=== PATIENT | male | born 1940 | race Caucasian/White ===

== ENCOUNTER 2017-08-24 15:14 | Observation (INO) ==
[2017-08-24] MEDS ORDERED: Ondansetron 4 MG/2 ML VIAL IVP ONE ×2 (15:27→17:52)
[2017-08-24] MEDS ORDERED: 0.9 % Sodium Chloride 1,000 ML IVC ONE (15:27)
[2017-08-24] MEDS ORDERED: diazePAM 10 MG/2 ML SYRINGE IVP STA ×2 (15:30→17:52)
--- NOTE | 2017-08-24 15:30 | Emergency Department Note ---
Disposition Clinical Impression: Vertigo Disposition: Admitted As Inpatient Referrals: Gustavo Fernandez DO [Primary Care Provider] - Forms: ED Satisfaction Letter General Adult HPI - General Chief complaint: ED Nausea/Vomiting/Diarrhea Stated complaint: Nausea Time Seen by Provider: 08/24/17 15:21 - Related Data Allergies Allergy/AdvReac Type Severity Reaction Status Date / Time No Known Allergies Allergy Verified 08/24/17 15:17 Course Vital Signs Temperature 98.1 F 08/24/17 15:17 Pulse Rate 65 08/24/17 15:17 Respiratory Rate 16 08/24/17 15:17 Blood Pressure 146/82 08/24/17 15:17 O2 Sat by Pulse Oximetry 99 08/24/17 15:17 Temperature 98.1 F 08/24/17 15:17 Pulse Rate 62 08/24/17 18:15 Respiratory Rate 16 08/24/17 18:15 Blood Pressure 137/69 08/24/17 18:15 O2 Sat by Pulse Oximetry 96 08/24/17 18:15 Oxygen Delivery Oxygen Delivery Room Air Medical Decision Making - Lab Data Result diagrams: 08/24/17 15:49 08/24/17 15:49 Lab Results 08/24/17 08/24/17 08/24/17 Range/Units 15:49 15:49 15:49 WBC 3.2 L (4.3-11.1) K/mcL RBC 3.83 L (4.19-5.50) M/mcL Hgb 14.5 (12.9-16.9) g/dL Hct 41.3 (37.5-50.1) % MCV 107.8 H (83.0-100.0) fL MCH 37.9 H (28.0-33.3) pg MCHC 35.1 (31.6-35.5) g/dL RDW 13.2 (11.5-14.5) % Plt Count 92 L (140-400) K/mcL MPV 10.9 (9.4-12.4) fL Immature Gran % 0.6 (0-4) % Seg Neutrophils % 65.3 % Lymphocytes % 21.1 % Monocytes % 12.4 % Eosinophils % 0.6 % Basophils % 0.0 % Neutrophils # 2.1 (1.6-8.9) K/mcL Lymphocytes # 0.7 (0.6-4.6) K/mcL Monocytes # 0.4 (0.0-1.3) K/mcL Eosinophils # 0.0 (0.0-0.6) K/mcL Basophils # 0.0 (0.0-0.2) K/mcL Reactive Lymphocytes Present A (Not Present) Platelet Estimate Slight Decrease L (Normal) Immature Plt Fraction 4.2 (1.1-6.1) % Sodium 133 L (136-145) mEq/L Potassium 3.9 (3.5-5.1) mEq/L Chloride 108 H (98-107) mEq/L Carbon Dioxide 23 (23-29) mEq/L BUN 21 (8-23) mg/dL Creatinine 1.39 H (0.70-1.30) mg/dL Est GFR ( Amer) > 60 (> 60) Est GFR (Non-Af Amer) 50 L (> 60) BUN/Creatinine Ratio 15 (6-26) Glucose 134 H (70-105) mg/dL Calculated Osmolality 281 (280-300) Calcium 8.8 (8.6-10.3) mg/dL Troponin I < 0.03 (< 0.04) ng/mL Urine Color (Yellow) Urine Clarity (Clear) Urine pH (5.0-8.0) pH Units Ur Specific [place] (1.010-1.025) Urine Protein (Neg-Trace) mg/dL Urine Glucose (UA) (Normal) mg/dL Urine Ketones (Negative) mg/dL Urine Blood (Negative) Urine Nitrite (Negative) Urine Bilirubin (Negative) Urine Urobilinogen (Normal) mg/dL Ur Leukocyte Esterase (Negative) Urine Microscopic RBC (0-3) per hpf Urine Microscopic WBC (0-3) per hpf Ur Squamous Epith Cells (None-Few) per lpf Urine Bacteria (None-Few) per hpf Hyaline Casts (None-Few) per lpf Ur Culture Indicated? (NO) 08/24/17 Range/Units 17:37 WBC (4.3-11.1) K/mcL RBC (4.19-5.50) M/mcL Hgb (12.9-16.9) g/dL Hct (37.5-50.1) % MCV (83.0-100.0) fL MCH (28.0-33.3) pg MCHC (31.6-35.5) g/dL RDW (11.5-14.5) % Plt Count (140-400) K/mcL MPV (9.4-12.4) fL Immature Gran % (0-4) % Seg Neutrophils % % Lymphocytes % % Monocytes % % Eosinophils % % Basophils % % Neutrophils # (1.6-8.9) K/mcL Lymphocytes # (0.6-4.6) K/mcL Monocytes # (0.0-1.3) K/mcL Eosinophils # (0.0-0.6) K/mcL Basophils # (0.0-0.2) K/mcL Reactive Lymphocytes (Not Present) Platelet Estimate (Normal) Immature Plt Fraction (1.1-6.1) % Sodium (136-145) mEq/L Potassium (3.5-5.1) mEq/L Chloride (98-107) mEq/L Carbon Dioxide (23-29) mEq/L BUN (8-23) mg/dL Creatinine (0.70-1.30) mg/dL Est GFR ( Amer) (> 60) Est GFR (Non-Af Amer) (> 60) BUN/Creatinine Ratio (6-26) Glucose (70-105) mg/dL Calculated Osmolality (280-300) Calcium (8.6-10.3) mg/dL Troponin I (< 0.04) ng/mL Urine Color Yellow (Yellow) Urine Clarity Clear (Clear) Urine pH 6.0 (5.0-8.0) pH Units Ur Specific [place] 1.017 (1.010-1.025) Urine Protein 30 H (Neg-Trace) mg/dL Urine Glucose (UA) Normal (Normal) mg/dL Urine Ketones Negative (Negative) mg/dL Urine Blood Negative (Negative) Urine Nitrite Negative (Negative) Urine Bilirubin Negative (Negative) Urine Urobilinogen Normal (Normal) mg/dL Ur Leukocyte Esterase Negative (Negative) Urine Microscopic RBC 0-3 (0-3) per hpf Urine Microscopic WBC 0-3 (0-3) per hpf Ur Squamous Epith Cells Few (None-Few) per lpf Urine Bacteria None Seen (None-Few) per hpf Hyaline Casts None Seen (None-Few) per lpf Ur Culture Indicated? NO (NO) Attestation Statement - Attestation Attestation: I examined this patient and my medical decision-making was reviewed with the Resident Physician. I agree with the documented findings, disposition and treatment plan as described except to the extent set forth below. Patient presented to the emergency Department chief complaint dizziness. He describes it as a spinning sensation. Feels like things are spinning back and forth. Patient was sleeping and woke up this way. States he noticed it when he opened his eyes. Nauseated. Symptoms resolved when he closes his eyes. On examination he is in no distress. He is laying in bed with his eyes closed. Heart regular lungs clear. He does have a horizontal nystagmus to the left. Plan. Vertigo workup. Workup unremarkable as far. Patient is still vertiginous after multiple meds. Will admit..
--- NOTE | 2017-08-24 15:35 | Emergency Department Note ---
Disposition Clinical Impression: Vertigo Disposition: Admitted As Inpatient Condition: Fair Referrals: Gustavo Fernandez DO [Primary Care Provider] - Forms: ED Satisfaction Letter Time of Disposition: 18:59 General Adult HPI - General Chief complaint: ED Nausea/Vomiting/Diarrhea Stated complaint: Nausea Time Seen by Provider: 08/24/17 15:21 Source: patient, EMS Mode of arrival: EMS Limitations: no limitations Nursing Notes Reviewed: Yes Vital Signs Reviewed: Yes - History of Present Illness HPI Narrative: Patient is a 77-year-old male with a past medical history of ophthalmic migraines presents to the emergency Department by squad for the complaint of room spinning onset approximately 30 minutes prior to arrival. The patient states that he felt fine took a nap and when he woke up from the nap and opened his eyes the room was spinning and he is extremely nauseous. Patient states that since that time is been keeping his eyes closed is improved his symptoms. He states that he has had 2 episodes similar to this in the past month. He was not evaluated. Patient states that he does have a history of but they thought were TIAs which she had about 3, however he is seen by [facility] neurologists and told that there are actually migraines. Those are not similar in presentation to his current symptoms today. He denies any focal neurological deficits Pain Scale: 0 - Related Data Allergies Allergy/AdvReac Type Severity Reaction Status Date / Time No Known Allergies Allergy Verified 08/24/17 15:17 All systems ED: reviewed and negative except as stated. Review of Systems: As Per HPI Constitutional: Denies: fever, chills Cardiovascular: Denies: chest pain, palpitations Respiratory: Denies: cough, dyspnea, wheezes, hemoptysis Gastrointestinal: Denies: abdominal pain, nausea, vomiting Genitourinary: Denies: urgency, dysuria, frequency, hematuria Musculoskeletal: Denies: back pain, neck pain Integumentary: Denies: rash, abrasion, lesions Neurological: Reports: vertigo. Denies: headache, weakness, numbness, paresthesias, confusion, abnormal gait Past Medical History - Past Medical History Attestation: Yes The following information was validated with the patient. Medical history: Reports: cancer, hyperlipidemia, hypertension Psychiatric history: Reports: no psych history - Social History Smoking Status: Never smoker Alcohol use: Reports: none Drug use: Reports: none Physical Exam CONSTITUTIONAL: Alert and oriented X3, well-nourished, well appearing, in no apparent distress. HEAD: Normocephalic; atraumatic. EYES: PERRL, no scleral icterus. NOSE: The nose is normal in appearance without rhinorrhea RESP: Normal chest excursion with respiration; breath sounds clear and equal bilaterally; no wheezes, rhonchi, or rales CARD: Regular rhythm, without murmurs, rub or gallop ABD: Non-distended; non-tender, soft,without rigidity, rebound or guarding SKIN: Normal for age and race; warm and dry; no apparent lesions NEUROLOGICAL: Patient is alert and oriented times three. Horizontal nystagmus to the left. Abnormal head impulse test. No skew deviation. Cranial nerves III- XII are intact. Sensory and motor functions are intact. Strength is 5/5 for flexion and extension in all 4 extremities. Patellar DTRS are equal and intact. Finger to nose testing is equal and normal bilaterally. - General Limitations: no limitations General appearance: alert Course Course Narrative: Patient's exam appreciate horizontal nystagmus to the left. His head impulse test was abnormal. No skew deviation. Patient has no focal neurological deficits. NIHSS 0. Plan at this time is to treat his vertigo with meclizine and valium. He will undergo a workup for dizziness including head CT, cardiac work up and basic labs. - Reevaluation(s) Reevaluation #1: Patient symptoms have improved. He states his spinning has resolved and his nausea is gone. States he still feels unsteady on his feet at this time. Symptoms overall are improving. Time: 16:37 Reevaluation #2: Patient's symptoms continue, he was ambulated to the bathroom without difficulty , however when he was standing up from sitting on the toilet he had room spinning sensation again and had difficulty with ambulation. Once he was back in his cot he was improved. Will repeat valium and zofran and reevaluate. Time: 18:14 Reevaluation #3: Patient symptoms have not completely resolved. Will admit for further evaluation and treatment until stable to ambulate without difficulty. Time: 18:59 Vital Signs Temperature 98.1 F 08/24/17 15:17 Pulse Rate 65 08/24/17 15:17 Respiratory Rate 16 08/24/17 15:17 Blood Pressure 146/82 08/24/17 15:17 O2 Sat by Pulse Oximetry 99 08/24/17 15:17 Temperature 98.1 F 08/24/17 15:17 Pulse Rate 62 08/24/17 18:15 Respiratory Rate 16 08/24/17 18:15 Blood Pressure 137/69 08/24/17 18:15 O2 Sat by Pulse Oximetry 96 08/24/17 18:15 Oxygen Delivery Oxygen Delivery Room Air Medical Decision Making - Medical Records Medical records reviewed: Yes I reviewed the patient's medical records. - Lab Data Lab results reviewed: Yes I reviewed the patient's lab results. Result diagrams: 08/24/17 15:49 08/24/17 15:49 Lab Results 08/24/17 08/24/17 08/24/17 Range/Units 15:49 15:49 15:49 WBC 3.2 L (4.3-11.1) K/mcL RBC 3.83 L (4.19-5.50) M/mcL Hgb 14.5 (12.9-16.9) g/dL Hct 41.3 (37.5-50.1) % MCV 107.8 H (83.0-100.0) fL MCH 37.9 H (28.0-33.3) pg MCHC 35.1 (31.6-35.5) g/dL RDW 13.2 (11.5-14.5) % Plt Count 92 L (140-400) K/mcL MPV 10.9 (9.4-12.4) fL Immature Gran % 0.6 (0-4) % Seg Neutrophils % 65.3 % Lymphocytes % 21.1 % Monocytes % 12.4 % Eosinophils % 0.6 % Basophils % 0.0 % Neutrophils # 2.1 (1.6-8.9) K/mcL Lymphocytes # 0.7 (0.6-4.6) K/mcL Monocytes # 0.4 (0.0-1.3) K/mcL Eosinophils # 0.0 (0.0-0.6) K/mcL Basophils # 0.0 (0.0-0.2) K/mcL Reactive Lymphocytes Present A (Not Present) Platelet Estimate Slight Decrease L (Normal) Immature Plt Fraction 4.2 (1.1-6.1) % Sodium 133 L (136-145) mEq/L Potassium 3.9 (3.5-5.1) mEq/L Chloride 108 H (98-107) mEq/L Carbon Dioxide 23 (23-29) mEq/L BUN 21 (8-23) mg/dL Creatinine 1.39 H (0.70-1.30) mg/dL Est GFR ( Amer) > 60 (> 60) Est GFR (Non-Af Amer) 50 L (> 60) BUN/Creatinine Ratio 15 (6-26) Glucose 134 H (70-105) mg/dL Calculated Osmolality 281 (280-300) Calcium 8.8 (8.6-10.3) mg/dL Troponin I < 0.03 (< 0.04) ng/mL Urine Color (Yellow) Urine Clarity (Clear) Urine pH (5.0-8.0) pH Units Ur Specific [place] (1.010-1.025) Urine Protein (Neg-Trace) mg/dL Urine Glucose (UA) (Normal) mg/dL Urine Ketones (Negative) mg/dL Urine Blood (Negative) Urine Nitrite (Negative) Urine Bilirubin (Negative) Urine Urobilinogen (Normal) mg/dL Ur Leukocyte Esterase (Negative) Urine Microscopic RBC (0-3) per hpf Urine Microscopic WBC (0-3) per hpf Ur Squamous Epith Cells (None-Few) per lpf Urine Bacteria (None-Few) per hpf Hyaline Casts (None-Few) per lpf Ur Culture Indicated? (NO) 08/24/17 Range/Units 17:37 WBC (4.3-11.1) K/mcL RBC (4.19-5.50) M/mcL Hgb (12.9-16.9) g/dL Hct (37.5-50.1) % MCV (83.0-100.0) fL MCH (28.0-33.3) pg MCHC (31.6-35.5) g/dL RDW (11.5-14.5) % Plt Count (140-400) K/mcL MPV (9.4-12.4) fL Immature Gran % (0-4) % Seg Neutrophils % % Lymphocytes % % Monocytes % % Eosinophils % % Basophils % % Neutrophils # (1.6-8.9) K/mcL Lymphocytes # (0.6-4.6) K/mcL Monocytes # (0.0-1.3) K/mcL Eosinophils # (0.0-0.6) K/mcL Basophils # (0.0-0.2) K/mcL Reactive Lymphocytes (Not Present) Platelet Estimate (Normal) Immature Plt Fraction (1.1-6.1) % Sodium (136-145) mEq/L Potassium (3.5-5.1) mEq/L Chloride (98-107) mEq/L Carbon Dioxide (23-29) mEq/L BUN (8-23) mg/dL Creatinine (0.70-1.30) mg/dL Est GFR ( Amer) (> 60) Est GFR (Non-Af Amer) (> 60) BUN/Creatinine Ratio (6-26) Glucose (70-105) mg/dL Calculated Osmolality (280-300) Calcium (8.6-10.3) mg/dL Troponin I (< 0.04) ng/mL Urine Color Yellow (Yellow) Urine Clarity Clear (Clear) Urine pH 6.0 (5.0-8.0) pH Units Ur Specific [place] 1.017 (1.010-1.025) Urine Protein 30 H (Neg-Trace) mg/dL Urine Glucose (UA) Normal (Normal) mg/dL Urine Ketones Negative (Negative) mg/dL Urine Blood Negative (Negative) Urine Nitrite Negative (Negative) Urine Bilirubin Negative (Negative) Urine Urobilinogen Normal (Normal) mg/dL Ur Leukocyte Esterase Negative (Negative) Urine Microscopic RBC 0-3 (0-3) per hpf Urine Microscopic WBC 0-3 (0-3) per hpf Ur Squamous Epith Cells Few (None-Few) per lpf Urine Bacteria None Seen (None-Few) per hpf Hyaline Casts None Seen (None-Few) per lpf Ur Culture Indicated? NO (NO) - Radiology Data Radiology results reviewed: Yes I reviewed the patient's radiology results. Chest X-Ray 08/24/17 15:28 IMPRESSION: No change from prior study. No acute consolidation. D/ / 08/24/2017 15:51:29 Gopi Morin MD / keenan Interpreting Provider: Gopi Morin MD Head CT 08/24/17 15:58 IMPRESSION: No acute intracranial abnormality. Diffuse atrophic changes with findings suggesting chronic microvascular ischemia D/ / Farhan Hernandez MD / Farhan Hernandez MD Interpreting Provider: Farhan Hernandez MD - EKG Data EKG #1 EKG attestation: Yes I reviewed and interpreted this EKG. EKG results narrative: EKG done at 15:22 shows sinus rhythm at a rate of 65 bpm. Normal axis. Intervals within normal limits no signs of ST elevation, ST depression or Q waves present.
[2017-08-24 16:13] LABS: Hemoglobin 14.5 g/dL (12.9-16.9); Immature Granulocytes % 0.6 % (0-4); Red Cell Distribution Width 13.2 % (11.5-14.5)
[2017-08-24 16:15] LABS: Eosinophils % 0.6 %; Hematocrit 41.3 % (37.5-50.1); Immature Platelets 4.2 % (1.1-6.1); Lymphocytes # 0.7 K/mcL (0.6-4.6); Lymphocytes % 21.1 %; Mean Corpuscular HGB Conc 35.1 g/dL (31.6-35.5); Mean Corpuscular Hemoglobin 37.9 pg (28.0-33.3); Mean Corpuscular Volume 107.8 fL (83.0-100.0); Mean Platelet Volume 10.9 fL (9.4-12.4); Monocytes # 0.4 K/mcL (0.0-1.3); Monocytes % 12.4 %; Neutrophils # 2.1 K/mcL (1.6-8.9); Red Blood Count 3.83 M/mcL (4.19-5.50); Segmented Neutrophils % 65.3 %
[2017-08-24 16:27] LABS: Blood Urea Nitrogen 21 mg/dL (8-23); Calcium 8.8 mg/dL (8.6-10.3); Carbon Dioxide 23 mEq/L (23-29); Chloride 108 mEq/L (98-107); Glucose 134 mg/dL (70-105); Osmolality,Calculated 281 (280-300); Potassium 3.9 mEq/L (3.5-5.1); Sodium 133 mEq/L (136-145)
[2017-08-24 16:37] LABS: Platelet Count 92 K/mcL (140-400)
[2017-08-24 16:39] LABS: Platelet Estimate Slight Decrease (Normal); Reactive Lymphocytes Present (Not Present)
[2017-08-24 16:47] LABS: BUN/Creatinine Ratio 15 (6-26); eGFR For African Americans > 60 (> 60); eGFR For Non-African Americans 50 (> 60)
[2017-08-24 18:05] LABS: Bilirubin,Urine Negative (Negative); Blood,Urine Negative (Negative); Clarity,Urine Clear (Clear); Color,Urine Yellow (Yellow); Glucose,Urine (UA) Normal (Normal); Ketones,Urine Negative (Negative); Leukocyte Esterase,Urine Negative (Negative); Nitrite,Urine Negative (Negative); Protein,Urine 30 mg/dL (Neg-Trace); Specific Gravity,Urine 1.017 (1.010-1.025); Urobilinogen,Urine Normal (Normal)
[2017-08-24 18:08] LABS: Bacteria,Urine None Seen per hpf (None-Few); Hyaline Casts,Urine None Seen per lpf (None-Few); RBC,Urine 0-3 per hpf (0-3); Squamous Epithelial Cell,Urine Few per lpf (None-Few); WBC,Urine 0-3 per hpf (0-3)
--- NOTE | 2017-08-24 20:07 | Internal Med History&Physical ---
Date of Encounter: 08/24/17 Time of Encounter: 20:06 Internal Medicine - H&P: HPI History of present illness: Mr. Zhang is a 77 year old male Past Med Surg Social Fam HX - Past Medical History Medical history: cancer (Leukemia, Basal cell carcinoma, Malignant melanoma stage 3), hyperlipidemia, migraine (opthalmic), renal disease (CKD stage 3), other (MDS, diverticulosis) Psychiatric history: no psych history - Past Surgical History Additional surgical history: Heel sx, Carpal tunnel sx, partial colon resection due to diverticulosis - Social History Smoking Status: Never smoker Alcohol use: none Drug use: none Occupational status: other ([employer]) Current living situation: Home, With Family (3 grandsons) Activity Level: Independent ambulation Recent Out of Country Travel Within the Last 8 Weeks: No Exposure or Possible Exposure to Illness During Travel: No - Family History Mother Hx Family Cancer: Yes (MDS) Father Living Status: Cause of : Ruptured appendicitis Internal Medicine - H&P: Meds Aspirin [Lo-Dose Aspirin EC] 81 mg PO DAILY 08/24/17 [History] Cinnamon Bark [Cinnamon] 500 mg PO DAILY 08/24/17 [History] Cyanocobalamin (B-12) [Vitamin B12] 1,000 mcg PO DAILY 08/24/17 [History] Escitalopram [Lexapro] 10 mg PO DAILY 08/24/17 [History] Famotidine [Acid Plan Checker] 10 mg PO DAILY 08/24/17 [History] Lisinopril 2.5 mg PO DAILY 08/24/17 [History] Metoprolol Succinate [Toprol Xl] 12.5 mg PO DAILY 08/24/17 [History] Multivit-Min/FA/Lycopen/Lutein [A Thru Z Select Multivit Tab] 1 tab PO DAILY [History] Nortriptyline [Pamelor] 25 mg PO HS 08/24/17 [History] Sikes-3/Dha/Epa/Fish Oil [Fish Oil 1,000 mg Softgel] 1 cap PO DAILY 08/24/17 [ History] Simvastatin [Zocor] 40 mg PO HS 08/24/17 [History] Testosterone Cypionate [Depo-Testosterone] 200 mg IM Q17D 08/24/17 [History] 3 Allergy/AdvReac Type Severity Reaction Status Date / Time No Known Allergies Allergy Verified 08/24/17 15:17 All Systems PM: A 10-system review of systems was performed and is negative for pertinent findings except as documented above in the HPI. - Constitutional Constitutional: chills, malaise, weakness, no fever(s), no falls, no weight gain , no weight loss - EENT Eyes: blurry vision, change in vision, other visual disturbances, no diplopia, no floaters, no loss of peripheral vision, no loss of vision, no seeing flashes , no spots in vision, no tunnel vision Nose, mouth and throat: no sinus pain, no sore throat - Cardiovascular Cardiovascular ROS IM: no chest pain, no dyspnea, no palpitations - Respiratory Respiratory: no cough, no dyspnea on exertion, no chest congestion - Gastrointestinal Gastrointestinal: diarrhea, loose stools (chronic s/p bowle resection), nausea, no abdominal pain, no constipation, no heartburn, no vomiting - Genitourinary Genitourinary ROS male: difficulty urinating, urinary hesitancy, urinary urgency , no dysuria, no flank pain, no urinary frequency, no urinary incontinence - Musculoskeletal Musculoskeletal ROS IM: no arthralgias, no back pain, no joint swelling, no limited range of motion, no numbness, no tingling - Integumentary Integumentary IM: no erythema, no non-healing lesions, no rash, no skin ulcer - Neurological Neurological ROS: abnormal gait, disequilibrium, dizziness, headache(s), lack of coordination, tremor(s), vertigo, weakness, other visual disturbances, no abnormal speech, no behavioral changes, no confusion, no convulsions, no focal weakness, no frequent falls, no loss of vision, no numbness, no paresthesias, no radicular pain, no restless legs, no tingling - Psychiatric Psychiatric: no anxiety, no confusion, no depression - Endocrine Endocrine IM: fatigue, no polydipsia, no polyphagia, no polyuria - Hematologic/Lymphatic Hematologic/Lymphatic: no easy bleeding, no easy bruising - Constitutional Vitals: Temp Pulse Resp BP Pulse Ox 98.1 F 62 16 137/69 96 08/24/17 15:17 08/24/17 18:15 08/24/17 18:15 08/24/17 18:15 08/24/17 18:15 General appearance: Present: cooperative, A&O X 3, pleasant, obese, answers questions appropriately - Head Head exam: Present: atraumatic, normocephalic - Eye Eye exam: Present: PERRL, conjuntiva pink, sclera anicteric Pupils: Present: PERRL - ENT ENT exam: Present: mucous membranes dry, normal oropharynx - Neck Neck exam general surgery: Present: supple, trachea midline. Absent: lymphadenopathy - Respiratory Respiratory exam: Present: CTAB. Absent: accessory muscle use, rales, rhonchi, wheezes - Cardiovascular Cardiovascular exam: Present: RRR, +S1, +S2. Absent: diastolic murmur, gallop, rubs, systolic murmur - GI/Abdominal GI/Abdominal exam: Present: normal bowel sounds, soft, no peritoneal signs. Absent: distended, tenderness - Extremities Exam Extremities exam: Present: normal inspection, warm, radial pulses palpable and symmetrical. Absent: calf tenderness, cyanotic, pedal edema - Back Exam Back exam: Absent: CVA tenderness (L), CVA tenderness (R), normal inspection ( large skin graft and postsurgical changes lower T-spine) - Neurological Exam Neurological exam: Present: abnormal gait, alert, CN II-XII intact, motor sensory deficit, oriented X3, no focal deficits, strengths equal and symetr throughout. Absent: altered, pronater drift, facial droop, speech deficit - Expanded Neurological Exam Neurological exam expanded: Present: tremor (mild) Patient oriented to: Present: person, place, time Speech: Present: fluid speech Cranial Nerves: EOM's intact PM: Normal, tongue deviation PM: Normal Cerebellar function: finger to nose: Normal, heel to wang: Normal, Romberg: Normal Sensory exam: lower extremity light touch: Normal, upper extremity light touch: Normal Neuro motor strength exam: LUE: 5, RUE: 5, LLE: 5, RLE: 5 Coma Scale Eye Opening: Spontaneous Coma Scale Motor Response: Obeys Commands Coma Scale Verbal Response: Oriented Coma Scale Total: 15 - Psychiatric Psychiatric exam: Present: normal affect, normal mood - Skin Skin exam: Present: dry, intact, normal color, warm Internal Med - H&P Results - Labs CBC & Chem 7: 08/24/17 15:49 08/24/17 15:49 - Pulse Oximetry Interpretation Digit-Finger O2 Sat by Pulse Oximetry: 95 (On RA) - Impressions ITS Impressions Chest X-Ray 08/24/17 15:28 IMPRESSION: No change from prior study. No acute consolidation. D/ / 08/24/2017 15:51:29 Gopi Morin MD / keenan Interpreting Provider: Gopi Morin MD Head CT 08/24/17 15:58 IMPRESSION: No acute intracranial abnormality. 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
[2017-08-24] MEDS ORDERED: Ondansetron 4 MG/2 ML VIAL IVP PRN (21:55)
[2017-08-24] MEDS ORDERED: Naloxone 0.4 MG/ML INJ IVP PRN (21:55)
[2017-08-24] MEDS ORDERED: Acetaminophen 325 MG TABLET PO PRN (21:55)
[2017-08-24] MEDS ORDERED: 0.9 % Sodium Chloride 1,000 ML IVC SCH (22:00)
[2017-08-24] MEDS ORDERED: Ondansetron 4 MG/2 ML VIAL ONE (23:13)
--- NOTE | 2017-08-24 23:52 | Internal Med History&Physical ---
<Getachew Hutchins - Last Filed: 08/25/17 20:03> Date of Encounter: 08/25/17 Time of Encounter: 20:06 Internal Medicine - H&P: HPI Chief complaint: Dizziness Admitted From: Home History of present illness: Mr. Zhang is a 77 year old male with a PMH of Leukemia, MDS, CKD stage 3, ophthalmic migraines, brain aneurysm since , and HLD who presents c/o dizziness. Patient reports double vision and room spinning sensation, worse with position changes and turning his head. Patient reports visiting his PCP about 6 weeks ago when symptoms initially occurred. Symptoms resolved spontaneously at that time but returned this morning after the patient took a nap around noon. He reports getting up and feeling like the room was spinning and he was seeing doubles. Patient called his grandson who took him to the ER. He is very unsteady on his feet and feels like he will fall. He reports associated chills, nausea, loose bowel movements, urinary hesitancy, tremors, and occipital headache. Patient denies fever, CP, SOB, abd pain, vomiting, numbness, tingling, extremity weakness, slurred speech, recent travel, recent illness, or sick contacts. CT brain was negative for acute abnormality. Patient reports improvement in symptoms after Meclizine and Valium in the ED. Past Med Surg Social Fam HX - Past Medical History Medical history: cancer (Leukemia, Basal cell carcinoma, Malignant melanoma stage 3), hyperlipidemia, migraine (ophthalmic), renal disease (CKD stage 3), other (MDS, diverticulosis, JOSE) Additional medical history: brain aneurysm Psychiatric history: no psych history - Past Surgical History Surgical History: tonsilectomy Additional surgical history: Heel sx, Carpal tunnel sx, partial colon resection due to diverticulosis - Social History Smoking Status: Never smoker Alcohol use: occasionally ([place] every 6 weeks) Drug use: none Occupational status: other ([employer]) Current living situation: Home, With Family Activity Level: Independent ambulation Recent Out of Country Travel Within the Last 8 Weeks: No Exposure or Possible Exposure to Illness During Travel: No - Family History Mother Hx Family Cancer: Yes (MDS) Father Living Status: Cause of : Ruptured appendicitis Internal Medicine - H&P: Meds Aspirin [Lo-Dose Aspirin EC] 81 mg PO DAILY 08/24/17 [History] Cinnamon Bark [Cinnamon] 500 mg PO DAILY 08/24/17 [History] Cyanocobalamin (B-12) [Vitamin B12] 1,000 mcg PO DAILY 08/24/17 [History] Escitalopram [Lexapro] 10 mg PO DAILY 08/24/17 [History] Famotidine [Acid Patent Prosecution Paralegal] 10 mg PO DAILY 08/24/17 [History] Lisinopril 2.5 mg PO DAILY 08/24/17 [History] Metoprolol Succinate [Toprol Xl] 12.5 mg PO DAILY 08/24/17 [History] Multivit-Min/FA/Lycopen/Lutein [A Thru Z Select Multivit Tab] 1 tab PO DAILY [History] Nortriptyline [Pamelor] 25 mg PO HS 08/24/17 [History] [place]-3/Dha/Epa/Fish Oil [Fish Oil 1,000 mg Softgel] 1 cap PO DAILY 08/24/17 [ History] Simvastatin [Zocor] 40 mg PO HS 08/24/17 [History] Testosterone Cypionate [Depo-Testosterone] 200 mg IM Q17D 08/24/17 [History] 3 Allergy/AdvReac Type Severity Reaction Status Date / Time No Known Allergies Allergy Verified 08/24/17 15:17 All Systems PM: A 10-system review of systems was performed and is negative for pertinent findings except as documented above in the HPI. - Constitutional Constitutional: chills, malaise, weakness, no fever(s), no falls, no weight gain , no weight loss - EENT Eyes: blurry vision, change in vision, other visual disturbances, no diplopia, no floaters, no loss of peripheral vision, no loss of vision, no seeing flashes , no spots in vision, no tunnel vision Nose, mouth and throat: no sinus pain, no sore throat - Cardiovascular Cardiovascular ROS IM: no chest pain, no dyspnea, no palpitations - Respiratory Respiratory: no cough, no dyspnea on exertion, no chest congestion - Gastrointestinal Gastrointestinal: diarrhea, loose stools (chronic s/p bowle resection), nausea, no abdominal pain, no constipation, no heartburn, no vomiting - Genitourinary Genitourinary ROS male: difficulty urinating, urinary hesitancy, urinary urgency , no dysuria, no flank pain, no urinary frequency, no urinary incontinence - Musculoskeletal Musculoskeletal ROS IM: no arthralgias, no back pain, no joint swelling, no limited range of motion, no numbness, no tingling - Integumentary Integumentary IM: no erythema, no non-healing lesions, no rash, no skin ulcer - Neurological Neurological ROS: abnormal gait, disequilibrium, dizziness, headache(s), lack of coordination, tremor(s), vertigo, weakness, other visual disturbances, no abnormal speech, no behavioral changes, no confusion, no convulsions, no focal weakness, no frequent falls, no loss of vision, no numbness, no paresthesias, no radicular pain, no restless legs, no tingling - Psychiatric Psychiatric: no anxiety, no confusion, no depression - Endocrine Endocrine IM: fatigue, no polydipsia, no polyphagia, no polyuria - Hematologic/Lymphatic Hematologic/Lymphatic: no easy bleeding, no easy bruising - Constitutional Vitals: Temp Pulse Resp BP Pulse Ox 98.0 F 62 16 122/53 95 08/24/17 21:25 08/24/17 21:25 08/24/17 21:25 08/24/17 21:25 08/24/17 21:25 General appearance: Present: cooperative, A&O X 3, pleasant, obese, answers questions appropriately Exam: - Head Head exam: Present: atraumatic, normocephalic - Eye Eye exam: Present: nystagmus, PERRL, conjuntiva pink, sclera anicteric Pupils: Present: PERRL - ENT ENT exam: Present: mucous membranes dry, normal oropharynx - Neck Neck exam general surgery: Present: supple, trachea midline. Absent: lymphadenopathy - Respiratory Respiratory exam: Present: CTAB. Absent: accessory muscle use, rales, rhonchi, wheezes - Cardiovascular Cardiovascular exam: Present: RRR, +S1, +S2. Absent: diastolic murmur, gallop, rubs, systolic murmur - GI/Abdominal GI/Abdominal exam: Present: normal bowel sounds, soft, no peritoneal signs. Absent: distended, tenderness - Extremities Exam Extremities exam: Present: normal inspection, warm, radial pulses palpable and symmetrical. Absent: calf tenderness, cyanotic, pedal edema - Back Exam Back exam: Absent: CVA tenderness (L), CVA tenderness (R), normal inspection ( large skin graft and postsurgical changes lower T-spine) - Neurological Exam Neurological exam: Present: abnormal gait, alert, CN II-XII intact, motor sensory deficit, oriented X3, no focal deficits, strengths equal and symetr throughout. Absent: altered, pronater drift, facial droop, speech deficit - Expanded Neurological Exam Neurological exam expanded: Present: tremor (mild) Patient oriented to: Present: person, place, time Speech: Present: fluid speech Cranial Nerves: nystagmus, EOM's intact PM: Normal, tongue deviation PM: Normal Cerebellar function: finger to nose: Normal, heel to wang: Normal, Romberg: Normal Sensory exam: lower extremity light touch: Normal, upper extremity light touch: Normal Neuro motor strength exam: LUE: 5, RUE: 5, LLE: 5, RLE: 5 Coma Scale Eye Opening: Spontaneous Coma Scale Motor Response: Obeys Commands Coma Scale Verbal Response: Oriented Coma Scale Total: 15 - Psychiatric Psychiatric exam: Present: normal affect, normal mood - Skin Skin exam: Present: dry, intact, normal color, warm Internal Med - H&P Results - Labs CBC & Chem 7: 08/25/17 05:52 08/25/17 05:52 - Pulse Oximetry Interpretation Digit-Finger O2 Sat by Pulse Oximetry: 95 (On room air) - Impressions ITS Impressions Chest X-Ray 08/24/17 15:28 IMPRESSION: No change from prior study. No acute consolidation. D/ / 08/24/2017 15:51:29 Gopi Morin MD / [facility] Interpreting Provider: Gopi Morin MD Head CT 08/24/17 15:58 IMPRESSION: No acute intracranial abnormality. Diffuse atrophic changes with findings suggesting chronic microvascular ischemia D/ / Farhan Hernandez MD / Farhan Hernandez MD Interpreting Provider: aFrhan Hernandez MD - Assessment and plan (1) Vertigo Current Visit: Yes Status: Acute Assessment and plan: Patient with diplopia and room spinning sensation, worse with position changes and turning his head. Patient evaluated by PCP 6 weeks ago when symptoms started. The symptoms resolved spontaneously at that time and returned on the morning of admission after he took a nap. Patient reports relief with Meclizine and Zofran We will continue IV fluids, Meclizine, antiemetics Continue telemetry PT/OT consulted Plan for vestibular rehabilitation after discharge. 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 and plan: In remission Patient denies current therapy Outpatient monitoring Qualifiers: Leukemia type: unspecified Leukemia Active/Remission status: in remission Qualified Code(s): C95.91 - Leukemia, unspecified, in remission (5) History of malignant melanoma Current Visit: Yes Status: Chronic Assessment and plan: Remote stage 3 lower back malignant melanoma requiring extensive surgery and skin grafting (6) CKD (chronic kidney disease), stage III Current Visit: Yes Status: Chronic Assessment and plan: Continue gentle hydration Avoid nephrotoxins Continue monitoring (7) HLD (hyperlipidemia) Current Visit: Yes Status: Chronic Assessment and plan: Continue home meds Qualifiers: Hyperlipidemia type: unspecified Qualified Code(s): E78.5 - Hyperlipidemia , unspecified (8) JOSE (obstructive sleep apnea) Current Visit: Yes Status: Chronic Assessment and plan: Continue CPAP at night (9) DVT prophylaxis Current Visit: Yes Status: Acute Assessment and plan: Heparin subQ (10) Obesity (BMI 30.0-34.9) Current Visit: Yes Status: Chronic Assessment and plan: Lifestyle modification - Time Spent With Patient Total time spent is greater than 50% in coordination of care (as documented) at patient's floor/unit and/or counseling patient: <HuberAsmitayara - Last Filed: 08/26/17 01:20> Date of Encounter: 08/26/17 Internal Medicine - H&P: HPI History of present illness: Mr. Zhang is a 77 year old male All Systems PM: A 10-system review of systems was performed and is negative for pertinent findings except as documented above in the HPI. - Constitutional Vitals: Temp Pulse Resp BP Pulse Ox 98.6 F 61 16 125/66 96 08/25/17 19:15 08/25/17 19:15 08/25/17 19:15 08/25/17 19:15 08/25/17 19:15 Internal Med - H&P Results - Labs CBC & Chem 7: 08/25/17 05:52 08/25/17 05:52 Labs: Short CBC 08/25/17 Range/Units 05:52 WBC 3.4 L (4.3-11.1) K/mcL Hgb 14.2 (12.9-16.9) g/dL Hct 40.5 (37.5-50.1) % Plt Count 96 L (140-400) K/mcL Neutrophils # 2.2 (1.6-8.9) K/mcL BMP 08/25/17 05:52 Sodium 136 Potassium 4.3 Chloride 105 Carbon Dioxide 25 BUN 17 Creatinine 1.21 Glucose 113 H Calcium 8.7 - Attending Attestation I have seen and examined this patient independently. I have discussed with resident physician Dr Hutchins regarding the management plan. Agree with the documentation. - Assessment and plan (1) Vertigo Current Visit: Yes Status: Acute (2) MDS (myelodysplastic syndrome) Current Visit: Yes Status: Chronic (3) Leukemia Current Visit: Yes Status: Chronic Qualifiers: Leukemia type: unspecified Leukemia Active/Remission status: in remission Qualified Code(s): C95.91 - Leukemia, unspecified, in remission (4) History of malignant melanoma Current Visit: Yes Status: Chronic (5) CKD (chronic kidney disease), stage III Current Visit: Yes Status: Chronic (6) HLD (hyperlipidemia) Current Visit: Yes Status: Chronic Qualifiers: Hyperlipidemia type: unspecified Qualified Code(s): E78.5 - Hyperlipidemia , unspecified (7) DVT prophylaxis Current Visit: Yes Status: Acute (8) Ophthalmic migraine Current Visit: Yes Status: Chronic (9) JOSE (obstructive sleep apnea) Current Visit: Yes Status: Chronic (10) Obesity (BMI 30.0-34.9) Current Visit: Yes Status: Chronic - Time Spent With Patient Total time spent is greater than 50% in coordination of care (as documented) at patient's floor/unit and/or counseling patient:
[2017-08-25] MEDS ORDERED: Acetaminophen 325 MG TABLET PO ONE (00:21)
[2017-08-25 09:18] LABS: Basophils % 0.3 %; Eosinophils % 0.3 %; Hematocrit 40.5 % (37.5-50.1); Hemoglobin 14.2 g/dL (12.9-16.9); Immature Granulocytes % 0.6 % (0-4); Immature Platelets 5.2 % (1.1-6.1); Lymphocytes # 0.7 K/mcL (0.6-4.6); Lymphocytes % 21.2 %; Mean Corpuscular HGB Conc 35.1 g/dL (31.6-35.5); Mean Corpuscular Hemoglobin 38.6 pg (28.0-33.3); Mean Corpuscular Volume 110.1 fL (83.0-100.0); Mean Platelet Volume 11.2 fL (9.4-12.4); Monocytes # 0.4 K/mcL (0.0-1.3); Monocytes % 12.4 %; Neutrophils # 2.2 K/mcL (1.6-8.9); Red Blood Count 3.68 M/mcL (4.19-5.50); Red Cell Distribution Width 13.3 % (11.5-14.5); Segmented Neutrophils % 65.2 %
[2017-08-25] MEDS: Cyanocobalamin (B-12) 1,000 MCG TABLET PO SCH (09:26)
[2017-08-25] MEDS: Famotidine 20 MG TABLET PO SCH (09:26)
[2017-08-25] MEDS: Multivit/Ca/Min/Fe/FA 1 TAB TABLET PO SCH (09:27)
[2017-08-25] MEDS: Metoprolol XL (24 HR) Succ 25 MG TAB.ER.24H PO SCH (09:28)
[2017-08-25] MEDS: Aspirin Enteric Coated 81 MG Tablet PO SCH (09:29)
[2017-08-25 09:32] LABS: BUN/Creatinine Ratio 14 (6-26); Blood Urea Nitrogen 17 mg/dL (8-23); Calcium 8.7 mg/dL (8.6-10.3); Carbon Dioxide 25 mEq/L (23-29); Chloride 105 mEq/L (98-107); Glucose 113 mg/dL (70-105); Osmolality,Calculated 284 (280-300); Potassium 4.3 mEq/L (3.5-5.1); Sodium 136 mEq/L (136-145); eGFR For African Americans > 60 (> 60); eGFR For Non-African Americans 58 (> 60)
--- NOTE | 2017-08-25 11:24 | Internal Med Progress Note ---
Date of Encounter: 08/25/17 Time of Encounter: 10:45 - Assessment and plan (1) Vertigo Current Visit: Yes Status: Acute Assessment and plan: Patient reports dizziness, diplopia and room spinning sensation, worse with position changes and turning his head. Patient reports that he has been evaluated by his primary care about 6 weeks ago when symptoms started. The symptoms resolved spontaneously at that time and returned on the morning of admission after he took a nap. Patient states that he got up and felt like the room was spinning. Today he reports horizontal jerking when he is watching TV. He denies any other vision changes, headache or nausea or vomiting. Patient reports some relief of symptoms with meclizine and states he is starting to feel some better. Patient echocardiogram in April, that showed an EF of 60% with mild LV DD, mild AR, mild AF, mild TR. We will continue IV fluids, meclizine, rest. Continue telemetry Plan for vestibular rehabilitation after discharge. (2) MDS (myelodysplastic syndrome) Current Visit: Yes Status: Chronic Assessment and plan: Patient with leukopenia and thrombocytopenia secondary to MDS Follow outpatient as scheduled. (3) Leukemia Current Visit: Yes Status: Chronic Assessment and plan: In remission Patient denies current therapy Follow with primary care as scheduled. Qualifiers: Leukemia type: unspecified Leukemia Active/Remission status: in remission Qualified Code(s): C95.91 - Leukemia, unspecified, in remission (4) History of malignant melanoma Current Visit: Yes Status: Chronic Assessment and plan: Remote history of stage 3 lower back malignant melanoma requiring extensive surgery and skin grafting (5) CKD (chronic kidney disease), stage III Current Visit: Yes Status: Chronic Assessment and plan: Continue gentle IVF hydration Avoid nephrotoxins Continue monitoring Serum creatinine 1.21, GFR 58. (6) HLD (hyperlipidemia) Current Visit: Yes Status: Chronic Assessment and plan: Chronic. Continue home dose of Zocor. Qualifiers: Hyperlipidemia type: unspecified Qualified Code(s): E78.5 - Hyperlipidemia , unspecified (7) DVT prophylaxis Current Visit: Yes Status: Acute Assessment and plan: Heparin SQ BID Encourage ambulation when patient is able. (8) Ophthalmic migraine Current Visit: Yes Status: Chronic Assessment and plan: Patient has not seen an neurologist in several years Continue home meds Follow-up with primary care. (9) JOSE (obstructive sleep apnea) Current Visit: Yes Status: Chronic Assessment and plan: Continue CPAP at night (10) Obesity (BMI 30.0-34.9) Current Visit: Yes Status: Chronic Assessment and plan: Chronic. Encourage lifestyle modifications. - Time Spent With Patient Total time spent is greater than 50% in coordination of care (as documented) at patient's floor/unit and/or counseling patient: less than 15 minutes - Subjective Interval history: Patient was seen and assessed at 10 10:45 AM. Patient is alert, awake, resting quietly in a dark room with his eyes closed. He does report some improvement with meclizine and fluids. He states he is still somewhat dizzy, but better. He denies chest pain, shortness of breath, nausea or vomiting, abdominal pain. Denies peripheral edema or vision changes. We will continue to monitor patient and look at discharge tomorrow. - Constitutional Vitals: Temp Pulse Resp BP Pulse Ox 98.3 F 67 16 145/70 97 08/24/17 23:43 08/24/17 23:43 08/24/17 23:43 08/24/17 23:43 08/24/17 23:43 General appearance: Present: cooperative, A&O X 3, pleasant, no acute distress, obese, answers questions appropriately - Head Head exam: Present: atraumatic, normocephalic - Eye Eye exam: Present: EOMI, normal appearance, conjuntiva pink, sclera anicteric. Absent: nystagmus Pupils: Absent: fixed - Neck Neck exam general surgery: Present: normal inspection, supple, trachea midline. Absent: lymphadenopathy, tenderness, thyromegaly - Respiratory Respiratory exam: Present: CTAB. Absent: accessory muscle use, chest wall tenderness, rales, respiratory distress, rhonchi, wheezes - Cardiovascular Cardiovascular exam: Present: RRR, +S1, +S2. Absent: diastolic murmur, gallop, rubs, systolic murmur - GI/Abdominal GI/Abdominal exam: Present: normal bowel sounds, soft. Absent: distended, hepatomegaly, tenderness - Extremities Exam Extremities exam: Present: normal capillary refill, normal inspection, warm, radial pulses palpable and symmetrical. Absent: calf tenderness, cyanotic, pedal edema, tenderness - Neurological Exam Neurological exam: Present: alert, oriented X3, no focal deficits. Absent: facial droop, speech deficit - Skin Skin exam: Present: dry, intact, normal color, warm. Absent: rash Internal Medicine: Result - Labs CBC & Chem 7: 08/24/17 15:49 08/24/17 15:49 Consult Discharge Plan - Plan Referrals: Gustavo Fernandez DO [Primary Care Provider] -
[2017-08-25 11:55] LABS: Platelet Count 96 K/mcL (140-400)
[2017-08-25 12:00] LABS: Platelet Estimate Decreased (Normal)
[2017-08-25] MEDS ORDERED: 0.9 % Sodium Chloride 1,000 ML IVC SCH (12:15)
[2017-08-25] MEDS: *HR* Heparin 5,000 UNIT/ML VIAL SQ SCH ×2 (17:17→20:06)
[2017-08-26] MEDS: *HR* Heparin 5,000 UNIT/ML VIAL SQ SCH (06:21)
--- NOTE | 2017-08-26 07:21 | Electrocardiograph Report ---
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
[2017-08-26 07:27] VITALS: BP 149/86
[2017-08-26 08:12] LABS: Basophils % 0.3 %; Eosinophils % 0.6 %; Hematocrit 44.2 % (37.5-50.1); Hemoglobin 15.1 g/dL (12.9-16.9); Immature Granulocytes % 0.6 % (0-4); Lymphocytes # 0.6 K/mcL (0.6-4.6); Lymphocytes % 20.3 %; Mean Corpuscular HGB Conc 34.2 g/dL (31.6-35.5); Mean Corpuscular Hemoglobin 37.1 pg (28.0-33.3); Mean Corpuscular Volume 108.6 fL (83.0-100.0); Mean Platelet Volume 10.7 fL (9.4-12.4); Monocytes # 0.3 K/mcL (0.0-1.3); Monocytes % 7.9 %; Neutrophils # 2.2 K/mcL (1.6-8.9); Platelet Count 102 K/mcL (140-400); Red Blood Count 4.07 M/mcL (4.19-5.50); Red Cell Distribution Width 13.5 % (11.5-14.5); Segmented Neutrophils % 70.3 %
[2017-08-26] MEDS: Multivit/Ca/Min/Fe/FA 1 TAB TABLET PO SCH (08:22)
[2017-08-26] MEDS: Famotidine 20 MG TABLET PO SCH (08:22)
[2017-08-26] MEDS: Cyanocobalamin (B-12) 1,000 MCG TABLET PO SCH (08:22)
[2017-08-26] MEDS: Metoprolol XL (24 HR) Succ 25 MG TAB.ER.24H PO SCH (08:23)
[2017-08-26] MEDS: Aspirin Enteric Coated 81 MG Tablet PO SCH (08:24)
[2017-08-26 08:40] LABS: BUN/Creatinine Ratio 12 (6-26); Blood Urea Nitrogen 17 mg/dL (8-23); Calcium 8.8 mg/dL (8.6-10.3); Carbon Dioxide 26 mEq/L (23-29); Chloride 104 mEq/L (98-107); Glucose 118 mg/dL (70-105); Osmolality,Calculated 285 (280-300); Potassium 4.2 mEq/L (3.5-5.1); Sodium 136 mEq/L (136-145); eGFR For African Americans > 60 (> 60); eGFR For Non-African Americans 51 (> 60)
--- NOTE | 2017-08-26 09:34 | Discharge Summary ---
- NOTES TO OUTPATIENT PROVIDER Notes to Outpatient Provider: Pt will need referral for vestibular rehab. Pt is on Meclizine for vertigo symptoms. Date of Encounter: 08/26/17 Time of Encounter: 09:20 - Discharge Diagnosis (1) Vertigo Priority: Primary Status: Acute Assessment and Plan: On admission, Patient with diplopia and room spinning sensation, worse with position changes and turning his head. Patient reports relief with Meclizine and Zofran Plan for vestibular rehabilitation after discharge. Pt reports that he is 75% better and is ready to go home. Pt and I discussed that he should not drive until he is cleared by PCP and or vestibular rehab, pt verbalized understanding. (2) MDS (myelodysplastic syndrome) Priority: Secondary Status: Chronic Assessment and Plan: Patient with leukocytosis and thrombocytopenia secondary to MDS/ Labs have been stable throughout visit. 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 Continue to follow with PCP/dermatology PRN. (5) CKD (chronic kidney disease), stage III Priority: Secondary Status: Chronic Assessment and Plan: Appears to be at baseline. Avoid nephrotoxins Follow with PCP as scheduled. (6) HLD (hyperlipidemia) Priority: Secondary Status: Chronic Assessment and Plan: Chronic. Continue home medication. Qualifiers: Hyperlipidemia type: unspecified Qualified Code(s): E78.5 - Hyperlipidemia , unspecified (7) DVT prophylaxis Priority: Secondary Status: Acute Assessment and Plan: Pt has been ambulatory. Heparin SQ BID. (8) Ophthalmic migraine Priority: Secondary Status: Chronic Assessment and Plan: Patient is not currently seeing a neurologist. Continue home meds Outpatient monitoring (9) JOSE (obstructive sleep apnea) Priority: Secondary Status: Chronic Assessment and Plan: Continue CPAP at night (10) Obesity (BMI 30.0-34.9) Priority: Secondary Status: Chronic Assessment and Plan: Chronic. Continue to try to implement lifestyle modifications. Hospital course: Mr. Zhang is a 77 year old male with PMH including MDS, leukemia, melanoma, CKD, HLD, JOSE with CPAP, and obesity. Pt presents with dizziness and spinning sensation. All testing indicated pt has vertigo. Symptoms controlled with Meclizine. Labs are WNL for pt, vitals are stable. Pt will need vestibular rehab after discharge. Pt is not to drive until he has been cleared to do so by PCP or PT. Pt will be discharged in stable condition. See assessment and plan for detailed hospital course. Discharge discussed with: patient - Time Spent with Patient Total time spent providing and/or coordinating discharge services: Less than 30 minutes - Discharge Medications Prescriptions: Meclizine HCl [Verticalm] 25 mg PO TID PRN #30 tablet PRN Reason: Dizziness Home Medications: Aspirin [Lo-Dose Aspirin EC] 81 mg PO DAILY 08/24/17 [History] Cinnamon Bark [Cinnamon] 500 mg PO DAILY 08/24/17 [History] Cyanocobalamin (B-12) [Vitamin B12] 1,000 mcg PO DAILY 08/24/17 [History] Escitalopram [Lexapro] 10 mg PO DAILY 08/24/17 [History] Famotidine [Acid French Binding Folder] 10 mg PO DAILY 08/24/17 [History] Lisinopril 2.5 mg PO DAILY 08/24/17 [History] Metoprolol Succinate [Toprol Xl] 12.5 mg PO DAILY 08/24/17 [History] Multivit-Min/FA/Lycopen/Lutein [A Thru Z Select Multivit Tab] 1 tab PO DAILY [History] Nortriptyline [Pamelor] 25 mg PO HS 08/24/17 [History] [place]-3/Dha/Epa/Fish Oil [Fish Oil 1,000 mg Softgel] 1 cap PO DAILY 08/24/17 [ History] Simvastatin [Zocor] 40 mg PO HS 08/24/17 [History] Testosterone Cypionate [Depo-Testosterone] 200 mg IM Q17D 08/24/17 [History] Meclizine HCl [Verticalm] 25 mg PO TID PRN #30 tablet 08/26/17 [Rx] Allergies/Adverse Reactions: 3 Allergy/AdvReac Type Severity Reaction Status Date / Time No Known Allergies Allergy Verified 08/24/17 15:17 Date of admission: 08/24/17 19:52 Primary care physician: Gustavo Fernandez DO Consults: 08/24/17 22:00 Consult to Physical Therapy [CONS] Routine Comment: Evaluate, develop and implement POC Reason for Consult: Vertigo, try [place] maneuver Does patient have active BEDREST order?: No Is patient medically & hemodynamically stable?: Yes Patient assessed for mobility or mobilized this visit?: No Discharging clinician: Thuy Vaughan Anticipated date of discharge: 08/26/17 - Constitutional Vitals: Temp Pulse Resp BP Pulse Ox 98.1 F 60 16 149/86 95 08/26/17 07:25 08/26/17 07:25 08/26/17 07:25 08/26/17 07:25 08/26/17 07:25 General appearance: Present: cooperative, A&O X 3, pleasant, no acute distress, obese, answers questions appropriately - Head Head exam: Present: atraumatic, normal inspection, normocephalic - Eye Eye exam: Present: EOMI, normal appearance, PERRL, conjuntiva pink, sclera anicteric. Absent: nystagmus Pupils: Present: PERRL - Neck Neck exam general surgery: Present: supple, trachea midline. Absent: lymphadenopathy, tenderness - Respiratory Respiratory exam: Present: CTAB. Absent: accessory muscle use, chest wall tenderness, rales, respiratory distress, rhonchi, wheezes - Cardiovascular Cardiovascular exam: Present: RRR, +S1, +S2. Absent: diastolic murmur, gallop, rubs, systolic murmur - GI/Abdominal GI/Abdominal exam: Present: normal bowel sounds, soft. Absent: distended, hepatomegaly, tenderness - Extremities Exam Extremities exam: Present: normal capillary refill, normal inspection, warm, radial pulses palpable and symmetrical. Absent: calf tenderness, cyanotic, pedal edema, tenderness - Neurological Exam Neurological exam: Present: alert, oriented X3, no focal deficits. Absent: facial droop, speech deficit - Skin Skin exam: Present: dry, intact, normal color, warm. Absent: rash - Patient Status Disposition: Home, Self-Care Condition: Good Functional capacity at discharge: independent ambulation Overall status at discharge: patient is progressing back to baseline - Discharge Instructions Follow Up With: Gustavo Fernandez DO [Primary Care Provider] - Additional Instructions: Please follow up with Dr. Fernandez in the next 5-7 days for a recheck. Return to the ER as needed for any other problems or concerns or if your symptoms return or worsen. Take your medications as directed, your new prescription is at [facility] on [address] Resume your other medications and return to your normal diet and activities as tolerated. Do not drive until you are cleared by your PCP and/or vestibular rehab. - Diet and Activity Activity: increase activity as tolerated Diet: advance to your usual diet
== END 2017-08-26 12:30 | disposition home or self-care (01) ==
LOC: EMEROO 15:14 → 3ANU 15:14
PROVIDERS: ADMIT Internal Medicine; ATTEND Internal Medicine